=== PATIENT | male | born 1970 | race Caucasian/White ===

== ENCOUNTER 2021-11-15 08:48 | Emergency (ER) | payer BC, SELFPAY ==
[2021-11-15] VITALS (10 sets, daily range): BP systolic 95–147; BP diastolic 68–95; PULSE 79–106; RESP 13–29; TEMP -17.7–36.9; O2SAT 93–97; BMI 33.0; BMI 34.4
--- NOTE | 2021-11-15 09:20 | EX.ED.VIS.PS ---
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 Patient apparently made statements to hotel staff about self-harm. On police arrival he had bolted his door until police to kick the door in. Patient apparently had been spending money throughout the day yesterday and was writing letters to friends apologizing. In the emergency department patient denies feeling suicidal or homicidal. He denies any medical history. He denies taking any medications. Patient is not otherwise forthcoming with any more information. He does have flight of ideas and disorganized thinking. [facility] Medical History (Updated 11/15/21 @ 15:[address] Stevenson Chance DO) Schizoaffective disorder Medical History no medical history Home Medications NK 11/15/21 [History Last Taken Unknown] Allergy/AdvReac Type Severity Reaction Status Date / Time No Known Allergies Allergy Verified 11/15/21 08:53 Surgical History no surgical history Social History Smoking Status: Never smoker ROS ROS ED Constitutional Constitutional ED: Reports systems reviewed and no addt'l complaints, except as documented; Denies body ache(s), change in weight or chills Eyes Eyes: Denies acute decrease in peripheral vision, change in vision, double vision or loss of vision ENT ENT ED: Reports none; Denies ear pain, lip swelling, loss taste/smell, neck pain, otalgia or sore throat Cardiovascular Cardiovascular: Reports none; Denies abdominal pain, chest pain with activity, leg edema, lightheadedness, palpitations, rapid heart rate or syncope Respiratory/Chest Respiratory/Chest: Reports none; Denies change in mental status, dry cough, dyspnea, hemoptysis, shortness of breath at rest or shortness of breath with exertion Gastrointestinal Gastrointestinal: Reports none; Denies abdominal pain, change in stool character, diarrhea, hematemesis, hematochezia, melena, rectal bleeding or vomiting Genitourinary Genitourinary ED: Reports none; Denies abdominal discomfort, anuria, dysuria, genital pain or polyuria Musculoskeletal Musculoskeletal: Reports none; Denies arthralgias, back pain, difficulty walking, extremity pain, muscle weakness or myalgias Integumentary Reports none; Denies abscess or rash Neurologic Neurologic: Reports none; Denies abnormal gait, confusion, focal weakness, frequent falls, headache(s), loss of vision, numbness, paresthesias, radicular pain, vertigo or weakness Psychiatric Psychiatric: Reports systems reviewed and no addt'l complaints, except as documented and none; Denies behavioral changes, confusion, difficulty concentrating, hallucinations, suicidal ideation, tactile hallucinations or visual hallucinations Endocrine Endocrinology: Denies none, cold intolerance, excessive sweating, fatigue or heat intolerance Hematologic/Lymphatic Hematologic/Lymphatic: Reports none; Denies anemia, easy bleeding or easy bruising Allergic/Immunologic Allergic/Immunologic ED: Denies as per HPI, none, lip swelling, mouth swelling, throat swelling, tongue swelling or hives EXAM Physical Exam Const Vital Signs: 11/15/21 08:52 11/15/21 09:14 11/15/21 10:02 Temperature 0 F L 98.4 F Temperature Source Oral Temporal Pulse Rate 104 H Respiratory Rate 16 16 Blood Pressure 147/95 H Blood Pressure Mean 112 Pulse Ox 93 Oxygen Delivery Method Room Air Oxygen Flow Rate (L/min) 11/15/21 12:18 11/15/21 13:15 11/15/21 14:31 Temperature Temperature Source Pulse Rate 98 89 Respiratory Rate 18 20 H 16 Blood Pressure 95/68 108/69 Blood Pressure Mean 77 82 Pulse Ox 93 96 Oxygen Delivery Method Room Air Nasal Cannula Oxygen Flow Rate (L/min) 2 11/15/21 15:07 Temperature Temperature Source Pulse Rate 79 Respiratory Rate 13 Blood Pressure 176/72 H Blood Pressure Mean 106 Pulse Ox 97 Oxygen Delivery Method Nasal Cannula Oxygen Flow Rate (L/min) 2 Positive well nourished and well developed General Appearance ED: well developed and NAD HEENT Reports TM's clear and moist mucous membranes normocephalic and atraumatic; Negative for trauma or tenderness Tympanic Membrane ED: Yes TM's clear Eyes PERRL and EOMs intact bilaterally General Eye ED: Negative for pale conjunctiva or scleral icterus Neck no lymphadenopathy, supple and no JVD General: Negative for tenderness Chest Wall inspection of chest normal and palpation of chest normal Chest: Negative for tenderness Resp normal respiratory effort and clear to auscultation bilaterally Effort and Inspection: Negative for respiratory distress or pain with movement Auscultation: Negative for rhonchi, wheezes or diminished lung sounds Cardio regular rate, regular rhythm, S1 normal heart sound, S2 normal heart sound and no murmurs Peripheral Pulses: pulses 2+ throughout GI normal to inspection, nondistended, normoactive bowel sounds, soft to palpation, non-tender, non-distended and no masses Back/Spine no CVA tenderness and no thoracic nor lumbar tenderness Extremity normal to inspection General Extremety ED: Negative for edema General Extremity: Negative for edema Neuro oriented x3, CN's II-XII intact bilaterally, no sensory deficits noted and gait normal Sensorium / Orientation: awake, alert, oriented to person, oriented to place and oriented to time Motor Exam: strength 5/5 throughout and strength abnormal Psych denies hallucinations, denies homicidal ideation and denies suicidal ideation Attitude: calm and guarded Activity / Motor Behavior: Negative for appropriate eye contact Speech: excessive and pressured Mood & Affect: apathetic Thought Process: disorganized, flight of ideas and tangential Memory / Cognition: memory grossly intact Insight: questionable Skin no rashes or lesions noted and no wounds MDM MDM MDM Narrative Medical decision making narrative: Lab work-up unremarkable. Alcohol was negative. Patient will be evaluated by crisis for placement to psychiatric facility. Patient medically cleared. Care of patient turned over to evening physician awaiting placement and transfer. Lab Data Attestation: I reviewed the patient's lab results. Labs: Laboratory Results - last 24 hr 11/15/21 11/15/21 11/15/21 09:50 09:50 09:50 WBC 7.7 RBC 4.10 L Hgb 12.6 L Hct 37.4 L MCV 91.2 MCH 30.7 MCHC 33.7 RDW Std Deviation 40.7 RDW Coeff of Raj 12.5 Plt Count 287 MPV 8.1 Immature Gran % (Auto) 1.000 H Neut % (Auto) 77.3 H Lymph % (Auto) 12.8 L Chilton % (Auto) 8.5 Eos % (Auto) 0.1 Baso % (Auto) 0.3 Absolute Neuts (auto) 5.9 Absolute Lymphs (auto) 0.98 Nucleated RBC % 0 Sodium 141 Potassium 3.8 Chloride 112 H Carbon Dioxide 24.0 Anion Gap 5 BUN 13 Creatinine 0.89 Estim Creat Clear Calc 110.20 Est GFR (MDRD) Af Amer 116 Est GFR (MDRD) Non-Af 96 BUN/Creatinine Ratio 14.5 Glucose 124 H Calcium 8.7 Urine Opiates Screen Urine Methadone Screen Ur Barbiturates Screen Ur Phencyclidine Scrn Ur Amphetamines Screen U Methamphetamin-MDMA U Benzodiazepines Scrn Urine Cocaine Screen U Cannabinoids Screen Ur Drug Screen Comment Ethyl Alcohol 3.0 11/15/21 11:20 WBC RBC Hgb Hct MCV MCH MCHC RDW Std Deviation RDW Coeff of Raj Plt Count MPV Immature Gran % (Auto) Neut % (Auto) Lymph % (Auto) Chilton % (Auto) Eos % (Auto) Baso % (Auto) Absolute Neuts (auto) Absolute Lymphs (auto) Nucleated RBC % Sodium Potassium Chloride Carbon Dioxide Anion Gap BUN Creatinine Estim Creat Clear Calc Est GFR (MDRD) Af Amer Est GFR (MDRD) Non-Af BUN/Creatinine Ratio Glucose Calcium Urine Opiates Screen NEGATIVE Urine Methadone Screen NEGATIVE Ur Barbiturates Screen NEGATIVE Ur Phencyclidine Scrn NEGATIVE Ur Amphetamines Screen NEGATIVE U Methamphetamin-MDMA NEGATIVE U Benzodiazepines Scrn NEGATIVE Urine Cocaine Screen NEGATIVE U Cannabinoids Screen NEGATIVE Ur Drug Screen Comment Ethyl Alcohol Discharge Plan Triage Chief Complaint: Mental Health ED Provider: Stevenson Chance Dx/Rx/DC Orders Clinical Impression: Psychosis Prescriptions: No Action NK RF: 0 Primary Care Provider: Care Physician,No Primary Referrals: Care Physician,No Primary [Primary Care Provider] - Disposition Disposition: Psychiatric Hospital or Unit
[2021-11-15 09:58] LABS: Absolute Lymphocyte Count 0.98 X10^3/uL (0.83-4.51); Absolute Neutrophil Count 5.9 X10^3/uL (2.0-7.7); Basophil# 0.02 X10^3/uL; Basophil% 0.3 % (0-1); Eosinophil# 0.01 X10^3/uL; Eosinophils% 0.1 % (0-5); Hematocrit 37.4 % (40-54); Hemoglobin 12.6 g/dL (13.0-16.5); Lymphocyte # 0.98 X10^3/ul (0.83-4.51); Lymphocyte % 12.8 % (19-41); Mean Corp Hgb Conc 33.7 g/dL (32-36); Mean Corpuscular Hgb 30.7 pg (27.0-32.0); Mean Corpuscular Volume 91.2 fL (80-94); Mean Platelet Vol. 8.1 fl (6.2-12.0); Monocyte# 0.65 X10^3/uL; Monocyte% 8.5 % (0-10); NRBC Flagged by Analyzer 0 % (0-5); Neutrophil # 5.94 X10^3/uL (2.7-7.7); Neutrophil % 77.3 % (47-70); Platelet Count 287 K/mm3 (150-450); RBC Distribution Width CV 12.5 % (11.6-14.6); RBC Distribution Width SD 40.7 fl (35.1-43.9); White Blood Count 7.7 K/mm3 (4.4-11.0)
[2021-11-15 10:11] LABS: Anion Gap 5 (5-15); BUN 13 mg/dL (7-18); BUN/Creat Ratio 14.5 RATIO (10-20); Calcium,Total 8.7 mg/dL (8.5-10.1); Chloride 112 mmol/L (98-107); Creatinine, Serum 0.89 mg/dL (0.70-1.30); EST Glomerular Filtration Rate 96 mL/min (>60); Est Glom Filt Rate - Afr Amer 116 mL/min (>60); Glucose 124 mg/dL (74-106); Potassium 3.8 mmol/L (3.5-5.1); Sodium Level 141 mmol/L (136-145)
--- NOTE | 2021-11-15 10:42 | ED.RN ---
PT MAKES REQUESTS FOR TO BE NOTIFIED OF PT PRESENCE IN THE ED. THIS RN CALLED [phone]. NO ANSWER, UNABLE TO LEAVE VOICEMAIL. PT INFORMED.
--- NOTE | 2021-11-15 11:00 | CM.ED ---
SOCIAL WORK ASSESSMENT Referral Source: Dr. Chance Reason for Consult: Mental Health Evaluation Chief Compliant: Marital/Social History: 20 years Currently not living with due to behaviors. Living Situation: Staying with parents, apartment, and hotels Support/Resources: Source [facility] History: None Education and Employment History: Bachelor?s Degree, Employed at [employer] in [place]. Mental Health Treatment/History: Schizoaffective Disorder. Never been treated, refused medication in the past. Triggers/Stressors: social issues, relationship issues Coping Skills: None Abuse Issues: Denies any history of abuse. Substance Abuse History: None reported Risk to Self/Others: Suicidal- Patient had made suicidal comments to staff at the hotel. Homicidal- Patient denies homicidal ideation. Mental Status Exam: Orientation- A&Ox2 Memory: impaired Appearance/General Behavior: disheveled Mood/Affect: bizarre Communication Pattern: rambling Thought Process: disorganized thoughts, flight of ideas, paranoid General Intellectual Functioning: Average Judgement: poor Insight: poor Assessment: Met with patient in room. Patient unable to participate in assessment due to paranoia, disorganized thoughts. Discussed with family, and father-Nicolás. Informed patient with history of mental health and follows with Source [facility]. states Kandi from [facility] diagnosed patient with schizoaffective disorder. Patient not on medication and has refused medication in the past. Patient has been [place] by police and requires hospitalization for stabilization. Patient has reported suicidal comments to staff at hotel he was staying in last evening. states they have recently been living apart due to patient?s mental health and behaviors. states patient does have apartment and has been staying with parents. does not understand why patient was in a hotel room last night. Family believes patient would benefit from hospitalization. Contact information for family: , Oznjbhukq-[phone], Father, Nicolás- [phone] Plan: Referral to inpatient psych Malik Johnson MSW, HARD ROCK DRILL OPERATOR
[2021-11-15 11:36] LABS: Amphetamine Urine VISTA NEGATIVE (<1000 ng/mL); Barbiturate Urine VISTA NEGATIVE (< 200 ng/mL); Benzodiazepine Urine VISTA NEGATIVE (< 200 ng/mL); Cocaine Urine VISTA NEGATIVE (< 300 ng/mL); Ecstacy Urine VISTA NEGATIVE (< 500 ng/mL); Methadone Urine VISTA NEGATIVE (< 300 ng/mL); PCP Urine VISTA NEGATIVE (< 25 ng/mL); THC Urine VISTA NEGATIVE (< 50 ng/mL); Vista UDS pH Range 7
[2021-11-15] MEDS: Ziprasidone IM 20 MG/ML VIAL IM (12:41)
[2021-11-15] MEDS: LORazepam 2 MG/ML Syringe 1 MG IM (12:41)
--- NOTE | 2021-11-15 13:04 | ED.RN ---
PT WAS SPEAKING ON THE PHONE WITH MOM AROUND 11:3O THIS AM. PT REQUESTED TO SPEAK TO HIS MOM. YESSY, MANAGER BAR ASSISTED PT IN CALLING HIS MOM. ONCE MOM WAS PLACED ON THE PHONE PT BEGAN TO SHOUT AND SCREAM, INCREASING AGITATION. PT PHONE PLACED ON PHONE ASSISTANT READING TEACHER AT PT REQUEST. MD ORDERED MEDICATIONS FOR INCREASING AGITATION, PT RAISING HIS VOICE AND TALKING CONTINUOUSLY AND NOT DIRECTED AT ANY INDIVIDUAL. PT BEGINS SHOUTING WHEN SPEAKING. THIS RN AND JHONNY RN AT BEDSIDE TO ADMINISTER MEDICATIONS. THIS RN PROVIDING EDUCATION ABOUT MEDICATIONS AND PURPOSE. PT REPORTS, I LIKE YOU, AND I DO NOT WANT TOO, BUT I WILL FIGHT YOU IF YOU TRY TO GIVE ME ANY MEDICATION. PT DRAWS ARMS AND LEGS IN TIGHT TOWARD CHEST. HRO AT BEDSIDE TO ASSIST WITH MEDICATION ADMINISTRATION, PT STATES, I AM NOT AFRAID TO FIGHT YOU. PT BEGINS THRASHING ARMS AND LEGS ALL OVER THE BED, ATTEMPTS TO HIT AND KICK STAFF AND OFFICER, PT PLACED IN RESTRAINTS AND MEDICATIONS ADMINISTERED.
--- NOTE | 2021-11-15 15:29 | CM.ED ---
Addendum entered by Madeline Johnson 11/15/21 15:34: Referral faxed and called to [facility]. Original Note: Referral called to [facility], not in network with patient's insurance. Referral faxed and called to [facility], pending review at this time. Malik Johnson, SURGICAL ATTENDANT, FILM PROCESS OPERATOR
--- NOTE | 2021-11-15 16:45 | CM.ED ---
SOCIAL WORK Patient accepted to [facility] by Dr. Zimmer to the [facility]. Nurse to call report to [phone]. [facility] to set up transport once report called. Malik Johnson, TRIM LINE WORKER, MANAGER OF BUSINESS OPERATIONS
--- NOTE | 2021-11-15 17:06 | NURSING ---
CALLED [facility], ETA IS 2 TO 3 HRS
--- NOTE | 2021-11-15 19:49 | ED.RN ---
physicians called and said it would be 8:30 until the squad can come.
== END 2021-11-15 21:05 ==
PROVIDERS: Emergency Provider Emergency Medicine
DX: F29 Unspecified psychosis not due to a substance or known physiological condition (principal); F25.9 Schizoaffective disorder, unspecified
CPT/HCPCS: 36415; 80048; 80307; 82077; 85025; 87426; 96372; 99285; J3486